=== PATIENT | male | born 1980 | race Caucasian/White ===

== ENCOUNTER 2019-01-18 08:36 | Day surgery (SDC) | payer MEDICARE, OTHER ==
[~2019-01-18] VITALS: Ht 172.7 cm; Wt 115.2 kg
[~2019-01-18 08:36] MED LIST: ALLEGRA 180MG180 MG PO; AMBIEN 10MG10 MG PO; ATIVAN; BUPROPRION; FLONASEALLERGY NS; KLONOPIN 1MG1 MG PO; LYRICA 150MG C150 MG PO; MAGNESIUM500 MG PO; MELATONIN5 M1 SL; PERCOCET 325 MG1 TA2 PO; SEROQUEL 1100 MG/TAB PO; SEROQUEL 200MG200 MG PO; SEROQUEL50 MG PO; TOPAMAX 100MG100 M1 PO; TRAZODONE PO; ZOLOFT100 MG PO
[2019-01-18] MEDS ORDERED: PERIACTIN 4MG TA4 MG PO (09:23)
[2019-01-18] MEDS ORDERED: LIDODERM 5% PATC1 EA TP (09:24)
[2019-01-18] MEDS ORDERED: VIAGRA50 M1 PO (09:28)
[2019-01-18] MEDS ORDERED: MUCINEX D1 TER PO (09:29)
[2019-01-18] MEDS ORDERED: MASON NATURAL2000 IU PO (09:29)
[2019-01-18 09:31] VITALS: BP 123/77; PULSE 104; TEMP 98.7
[2019-01-18 12:05] VITALS: BP 126/78; PULSE 103; TEMP 97.2
--- NOTE | 2019-01-18 12:05 | NUR ---
Pt to [facility] via cart from PACU. Pt awake and alert. Denies pain or nausea. Water and juice given per pt request. O2 on at 2 liters via nasal canula. Side rails up x2. Call light within reach.
--- NOTE | 2019-01-18 12:10 | NUR ---
Patient given water and juice at this time.
--- NOTE | 2019-01-18 12:19 | NUR ---
Avelina RN obtains PRN order for Benadryl from [facility] at this time. Patient complains of itching from Fentanyl. IV Benadryl administered.
[2019-01-18 12:20] VITALS: BP 117/91; PULSE 93
--- NOTE | 2019-01-18 12:20 | NUR ---
Dismissal instructions gone over with patient, he voices understanding and all questions answered.
--- NOTE | 2019-01-18 12:21 | NUR ---
O2 discontinued at this time. Vitals stable.
--- NOTE | 2019-01-18 12:25 | NUR ---
Patient up to restroom at this time. He is able to urinate a few drops of bloody urine. Patient given more water.
[2019-01-18 12:35] VITALS: BP 132/95; PULSE 100
--- NOTE | 2019-01-18 12:35 | NUR ---
Patient given muffin at this time. Tolerates water and juice without any nausea. Reports itching sensation is better/gone.
--- NOTE | 2019-01-18 13:00 | NUR ---
Patient up to restroom at this time and is able to urinate without any difficulties.
[2019-01-18 13:10] VITALS: BP 116/88; PULSE 86
--- NOTE | 2019-01-18 13:30 | NUR ---
Patient dismissed to home via wheelchair thanking staff for services.
[2019-01-18 13:45] VITALS: BP 130/80; PULSE 102; TEMP 97.3
== END 2019-01-18 13:30 | disposition home or self-care (01) ==
LOC: SDCO 08:36
DX: N20.0 Calculus of kidney (principal); E11.9 Type 2 diabetes mellitus without complications; Z87.442 Personal history of urinary calculi; Z79.899 Other long term (current) drug therapy; Z90.49 Acquired absence of other specified parts of digestive tract; G47.33 Obstructive sleep apnea (adult) (pediatric); F41.9 Anxiety disorder, unspecified; F32.9 Major depressive disorder, single episode, unspecified; M79.7 Fibromyalgia; Z87.19 Personal history of other diseases of the digestive system
CPT/HCPCS: C1769; C2617; J0330; J0360; J0690; J1200; J2704; J3010; J7120; Q9967